=== PATIENT | male | born 1975 | race Caucasian/White ===

== ENCOUNTER → 2016-11-18 | Outpatient (CLI) | payer BC ==
[~2016-11-18] MED LIST: ANT25 PO; ASPI81TA28 PO; HYDR25TA5 PO; OMEP40CA41 PO; ZLF/50 PO
--- NOTE | 2016-11-18 17:29 | EEG Procedure Note ---
EEG Procedure Note Date of Service Nov 18, 2016. Start / End Times Start Time: 9:02 AM End Time: 9:22 AM Referring Physician Randee Solis History This is a 40-year-old male with muscle twitching. EEG for further evaluation of possible seizure etiology. Home Medication List Scheduled Aspirin (Aspirin Ec), 81 MG PO DAILY Hydrochlorothiazide (Hydrochlorothiazide), 25 MG PO DAILY Meclizine HCl (Meclizine HCl), 25 MG PO TID Omeprazole (Prilosec), 40 MG PO DAILY Sertraline HCl (Sertraline HCl), 100 MG PO DAILY Description This is a 21 electrode EEG with a single channel dedicated to limited EKG. The electrodes were placed in accordance with the International 10-20 system. At the start of the recording the patient was in an awake state. Background was well organized and composed of symmetric mixed alpha and beta frequencies. There was a symmetric well-formed moderate amplitude 11-12 Hz posterior dominant rhythm that was reactive to eye opening and closure. Hyperventilation with good effort produced no abnormalities. Intermittent photic stimulation at various frequencies produced no abnormalities. Drowsiness was indicated by loss of muscle artifact and slowing of the background rhythm. Interpretation This is a normal awake and drowsy routine EEG. There was no electrographic seizures or epileptiform discharges. Clinical Correlation A normal EEG does not rule out epilepsy if there is a strong clinical suspicion.
== END | disposition home or self-care (01) ==
LOC: C.NEUR 08:48
PROVIDERS: ATTEND Psychiatry & Neurology Neurology
DX: R25.3 Fasciculation (principal)

== ENCOUNTER → 2018-03-09 | Outpatient (CLI) | payer OTHER ==
--- NOTE | 2018-03-09 17:30 | DIAGNOSTIC IMAGING REPORT ---
L FOOT MIN 3 VIEWS ROUTINE CLINICAL HISTORY: Lateral left foot pain. COMPARISON: None FINDINGS: Tarsometatarsal joints are intact. No acute fracture within the left foot is identified. There is minimal plantar calcaneal spurring. No osseous lesion is noted. No evidence for a stress fracture. There is minimal osteophytosis of the left first metatarsophalangeal joint. IMPRESSION: 1. No acute fracture or dislocation within the left foot. 2. Minimal osteophytosis of the left first metatarsophalangeal joint. Electronically signed by: Lan Brooks M.D. 03/09/2018 5:29 PM Dictated Date/Time: 03/09/2018 5:28 PM
== END | disposition home or self-care (01) ==
LOC: C.RAD1850 16:49
PROVIDERS: ATTEND Family Medicine
DX: M79.672 Pain in left foot (principal)

== ENCOUNTER 2024-12-05 15:39 | Inpatient (IN) ==
--- NOTE | 2024-12-05 16:03 | Emergency Department Note ---
History of Present Illness General Chief complaint: Swelling/Edema to Extremity Stated complaint: SWOLLEN RT KNEE Time Seen by Provider: 12/05/24 15:46 History of Present Illness Maximum Pain Intensity: 3 This is a 49-year-old male that presents to the emergency department via private vehicle with complaints of "right leg swelling". The patient notes that over the past 3 weeks he has had swelling to the right lower extremity. No trauma. No injury. He denies any trauma, injury, fevers or chills. No nausea or vomiting. No chest pain. Patient does note shortness of breath with exertion as of recent. He denies any history of blood clots. No recent trips or travel other than did note he traveled to [place] over the past few days but the leg swelling began prior to his trip. Home Medications Medication Instructions Recorded Confirmed Type famotidine 20 mg tablet (Pepcid) 20 mg PO DAILY 02/03/22 12/05/24 History lancets (Accu-Chek Softclix 02/03/22 07/23/24 History Lancets) semaglutide 2 mg/dose (8 mg/3 mL) 2 mg subcut WK 02/03/22 12/05/24 History subcutaneous pen injector (Ozempic) pantoprazole 40 mg tablet,delayed 40 mg PO DAILY 04/01/24 12/05/24 History release escitalopram oxalate 20 mg tablet 20 mg PO DAILY 12/05/24 12/05/24 History levocetirizine 5 mg tablet 5 mg PO DAILY PRN allergies 12/05/24 12/05/24 History losartan 100 mg tablet 100 mg PO DAILY 12/05/24 12/05/24 History Allergies Allergy/AdvReac Type Severity Reaction Status Date / Time [facility] Allergy Intermediate Unknown Verified 12/05/24 21:31 Iodinated Contrast Media AdvReac Unknown UNKNOWN Verified 12/06/24 01:44 Past Med/Surg History Problem List (Updated 12/06/24 @ 01:54 by Chavo Faust PA-C) T2DM (type 2 diabetes mellitus) Bilateral pulmonary embolism (Acute) Right leg DVT (Acute) Speech disturbance Lactose intolerance Food sensitivity with gastrointestinal symptoms Seasonal rhinitis Bilateral primary osteoarthritis of knee Nocturnal hypoxemia Weight disorder ENID (obstructive sleep apnea) Hyperlipidemia Hypertension Gastroesophageal reflux Dysphagia Diabetes mellitus B12 deficiency Anxiety Foot pain, right Infected insect bite of leg (Acute) Medical History Myoclonus Memory loss Dizziness Ataxia Hiatal hernia Surgical History H/O shoulder surgery H/O wisdom tooth extraction Family History Grandmother (Maternal) Cancer Grandfather (Paternal) Cancer Father Hypertension Diabetes Mother Hypertension Grandfather (Maternal) Hypertension Social History Smoking Status: Never smoker Hx Alcohol Use: Yes Alcohol type: hard liquor Hx Substance Use: No Preferred Language: Tristanian Clinical Support Nurse Required: No Beliefs That Will Affect Care: None Current Living Situation: Spouse Feels Safe at Home: Yes Safety Concerns: Feels Safe At This Time Assistive Devices: BiPap and Glasses Review of Systems A total of 10 systems reviewed and were otherwise negative Physical Exam Vital Signs Vital Signs - 24 hr 12/05/24 15:40 12/05/24 16:04 12/05/24 17:12 Temperature 36.7 C Temperature Source Temporal Artery Scan Pulse Rate 76 64 Pulse Rate [Apical] Respiratory Rate 18 Respiratory Effort / Characteristics Non-Labored Spontaneous Respiratory Depth Normal Respiratory Pattern Blood Pressure 123/77 Blood Pressure [Right Arm] Blood Pressure Mean 92 Blood Pressure Mean [Right Arm] Blood Pressure Position Sitting Blood Pressure Position [Right Arm] Pulse Oximetry 96 95 Oxygen Delivery Method Room Air Room Air Sepsis Recent Fever Within 48 Hours No Sepsis New/Unexplained Change in Mental Status No Sepsis Action Taken by Nursing No Action Required 12/05/24 17:32 12/05/24 19:00 Temperature Temperature Source Pulse Rate Pulse Rate [Apical] 62 57 L Respiratory Rate 12 14 Respiratory Effort / Characteristics Non-Labored Spontaneous Respiratory Depth Normal Respiratory Pattern Regular Blood Pressure Blood Pressure [Right Arm] 142/87 H Blood Pressure Mean Blood Pressure Mean [Right Arm] 105 Blood Pressure Position Blood Pressure Position [Right Arm] Semi-fowlers Pulse Oximetry 99 99 Oxygen Delivery Method Room Air Room Air Sepsis Recent Fever Within 48 Hours Sepsis New/Unexplained Change in Mental Status Sepsis Action Taken by Nursing VITAL SIGNS - Vital signs and nursing notes were reviewed. Stable and afebrile. GENERAL -49-year-old male appearing his stated age who is in no acute distress. Communicates well with provider and answers questions appropriately. SKIN - Without rashes. No meningeal or petechial rash. HEAD - NC/AT. EYES - PERRL with EOMI bilaterally. Sclera anicteric. EARS - No deformities of external structures noted on gross examination bilaterally. NOSE - Midline and without cyanosis. No epistaxis or purulent drainage noted. MOUTH/OROPHARYNX - Without perioral cyanosis. NECK - No nuchal rigidity. LUNGS - Chest wall symmetric without accessory muscle use, intercostals retractions, or central cyanosis. Normal vesicular breath sounds CTA B/L. No wheezes, rales, or rhonchi appreciated. CARDIAC - RRR ABDOMEN - Abdominal contour normal without pulsations or visible masses. BS normoactive all four quadrants. No tenderness, palpable masses, hepatosplenomegaly, or ascites noted. EXTREMITIES - No clubbing or peripheral cyanosis. Circumferential right lower extremity noted distal to the right knee. There is no crepitus. Compartments are soft. Dorsalis pedis pulses within normal limits. Lower extremities are appropriately warm and well-perfused. +5/5 strength noted in UE/LE bilaterally. NEUROLOGIC - Cranial nerves II through XII grossly intact. PSYCH -alert, oriented and pleasant on exam Course Administered Medications Escitalopram Oxalate (Escitalopram Oxalate 20 Mg Tab) 20 mg PO HS WANDA Stop: 01/04/25 21:26 Last Admin: 12/05/24 22:07 Dose: 20 mg Documented By: AGUILAR Famotidine (Famotidine 20 Mg Tab) 20 mg PO HS WANDA Stop: 01/04/25 21:26 Last Admin: 12/05/24 22:07 Dose: 20 mg Documented By: AGUILAR Heparin Sodium/Dextrose (Heparin 19439 Unit/500 Ml D5w) 25,000 units in 500 mls @ 33 mls/hr IV .[id number] WANDA; Protocol Stop: 01/04/25 19:29 Last Titration: 12/05/24 21:14 Dose: 1,650 units/hr, 33 mls/hr Documented By: GELA Co-signed By: AGUILAR Admin: 12/05/24 19:31 Dose: 1,650 units/hr, 33 mls/hr Documented By: GELA Co-signed By: NAW Losartan Potassium (Losartan Potassium 50 Mg Tab) 100 mg PO WANDA Stop: 01/04/25 21:26 Last Admin: 12/05/24 22:07 Dose: 100 mg Documented By: LMP Pantoprazole Sodium (Pantoprazole 40 Mg Tab) 40 mg PO HS WANDA Stop: 01/04/25 21:26 Last Admin: 12/05/24 22:07 Dose: 40 mg Documented By: LMP Discontinued Medications Heparin Sodium (Porcine) (Heparin Sod (Porcine) 1000 Unit/Ml) 1 units IV NOW ONE Stop: 12/05/24 19:28 Last Admin: 12/05/24 19:48 Dose: 7,000 units Documented By: GELA Co-signed By: AMIRA Heparin Sodium/Dextrose (Heparin Iv Adult Wt-Based Standard W/ Initial Bolus Protocol) 1 each IV NOW STA; Protocol Stop: 12/05/24 19:13 Last Admin: 12/05/24 19:20 Dose: 1 each Documented By: GELA Ioversol (Optiray 320 125ml) 119 ml IV ONCE ONE Stop: 12/05/24 18:29 Last Admin: 12/05/24 18:28 Dose: 119 ml Documented By: RYAN Critical Care Time I have personally spent about 61 minutes of critical care time in the direct management of this patient. This includes bedside care, interpretation of diagnostic studies, and testing, discussion with consultants, patient, and family members, and other required patient management activities. This 61 minutes is in excess of all separately billable procedures. Medical Decision Making Laboratory Data 12/05/24 16:19 12/05/24 16:19 Lab Results 12/05/24 Range/Units 16:19 WBC 8.84 (4.8-10.8) K/ul RBC 4.53 L (4.70-6.10) M/uL Hgb 13.7 L (14.0-18.0) g/dl Hct 41.1 L (42.0-52.0) % MCV 90.7 (80.0-100.0) fL MCH 30.2 (25.0-34.0) pg MCHC 33.3 (32.0-36.0) g/dL RDW Std Deviation 42.3 (36.4-46.3) fL RDW Coeff of Jada 13.1 (11.5-14.5) % Plt Count 210 (130-400) K/uL MPV 10.8 (9.4-12.4) fL Immature Gran % (Auto) 0.3 % Neut % (Auto) 71.9 % Lymph % (Auto) 20.7 % [place] % (Auto) 4.8 % Eos % (Auto) 2.0 % Baso % (Auto) 0.3 % Neut # (Auto) 6.35 (1.40-6.50) K/uL Lymph # (Auto) 1.83 (1.20-3.40) K/uL [place] # (Auto) 0.42 (0.11-0.59) K/uL Eos # (Auto) 0.18 (0.00-0.50) K/uL Baso # (Auto) 0.03 (0.00-0.20) K/uL Immature Gran # (Auto) 0.03 (0.01-0.20) K/uL PT 10.9 (9.0-12.0) Seconds INR 1.0 (0.9-1.1) APTT 26 (21-31) Seconds PTT Ratio 1.0 Sodium 140 (136-145) mmol/L Potassium 4.0 (3.5-5.1) mmol/L Chloride 107 (98-107) mmol/L Carbon Dioxide 28 (21-32) mmol/L Anion Gap 5 (3-11) BUN 15 (6-23) mg/dl Creatinine 1.27 (0.6-1.4) mg/dl Est Cr Clr Drug Dosing 90.6 ml/min eGFR 68.40 BUN/Creatinine Ratio 11.8 (10-20) Glucose 119 H (70-99(Fasting)) mg/dl Calcium 9.3 (8.6-10.3) mg/dl Total Bilirubin 1.1 H (0.2-1.0) mg/dl AST 20 (13-39) U/L ALT 24 (7-52) U/L Alkaline Phosphatase 64 (34-104) U/L Troponin I High Sens < 2.3 (0-20) pg/ml Total Protein 7.4 (6.0-8.3) gm/dl Albumin 4.2 (3.4-5.0) gm/dl Globulin 3.2 (2.5-4.0) gm/dl Albumin/Globulin Ratio 1.3 (0.9-2) TSH 1.633 (0.300-4.500) uIu/ml Imaging Data Radiologist's Impression: Venous Doppler Study 12/05/24 16:02 EXAM: US venous doppler LE RT CLINICAL HISTORY: Atraumatic RLE edema. TECHNIQUE: Ultrasound examination of the right lower extremity veins was performed in real time and duplex. One or more of the following were performed- spectral analysis, resistive index, waveform analysis, and pulsed Doppler. COMPARISON: None. FINDINGS: The right distal SFV is seen as partially compressible with partial flow, indicating acute nonocclusive DVT. The Pop v, one of the PTVs, and one of the peroneal and ATV veins, and superficial popliteal fossa veins are seen distended with echogenic thrombus, non-compressible with no flow inside, indicating acute DVT. Normal phasic, non-pulsatile, and spontaneous flow is noted in the right common femoral, proximal, and mid superficial femoral veins. Demonstrating normal compressibility with no evidence of acute deep vein thrombosis (DVT) Compression and Augmentation: The right common femoral, proximal, and mid superficial femoral veins compress fully with applied transducer pressure. Additional findings: Mild calf edema. IMPRESSION: 1. Acute occluside DVT in the right popliteal vein, one of the posterior tibial vein, and one of the peroneal and anterior tibial veins. 2. Right distal SFV acute non-occlusive DVT. 3. Mild calf edema. Disclaimer: DVT could be missed early in the disease when clot burden is minimal. For patients with moderate and high pretest probability of DVT and negative ultrasound, the [employer] clinical guidelines recommend testing with a D-dimer assay or repeat ultrasound in 5-7 days. If symptoms worsen, the Society of radiologists in ultrasound recommends repeating ultrasound even earlier. Electronically signed by Tutu Hernandez 12-05-2024 6:16 PM Chest X-Ray 12/05/24 16:07 EXAM: XR chest 1V portable CLINICAL HISTORY: exertional dyspnea TECHNIQUE: An X-ray image of the chest is obtained in AP projection. COMPARISON: 03/31/2016 FINDINGS: Pulmonary Parenchyma: Bilateral prominent hilar vascularity. No evidence of consolidation, collapse, or focal opacities. No pulmonary nodules are identified. No evidence of pleural effusion or pleural thickening. Heart and Mediastinum: Cardiomegaly. No mediastinal widening or masses. No hilar or mediastinal lymphadenopathy. Bony Thorax: Bony thorax appears intact without fractures or deformities. Soft Tissues: Soft tissues overlying the chest wall are unremarkable. A radiopaque line is seen at the right lung apex extending to the right axilla IMPRESSION: 1. Cardiomegaly. Bilateral prominent hilar vascularity.Possible congestive changes. Unchanged. 2. A radiopaque line is seen at the right lung apex extending to the right axilla. Suspected artifacual. Correlate clinically. Electronically signed by Tutu Hernandez 12-05-2024 6:53 PM Chest CTA 12/05/24 18:10 EXAMINATION: CT angio chest PE protocol CLINICAL HISTORY: Dyspnea, right leg edema PRIORS: Chest x-ray December 05, 2024 TECHNIQUE: Contiguous axial images were obtained through the chest with the use of intravenous contrast. Sagittal and coronal reformations are supplied. FINDINGS: Pulmonary arteries are well opacified with normal caliber. Pulmonary embolism present in the subsegmental left lower lobe pulmonary arteries, image 63, series 2. There may be a small amount of embolism distal to this in the peripheral branches. Small amount of pulmonary embolism also present in the segmental branch of the right middle lobe. Pulmonary embolism present in the right segmental branch of the lower lobe. Mild to moderate clot burden is identified. Mild flattening of the interventricular septum noted. No contrast reflux into the inferior vena cava or hepatic veins. Allowing for motion, the right ventricle may be mildly enlarged. No dominant pulmonary mass or airspace consolidation. No pleural or pericardial effusion. Heart size upper limits of normal. Small to moderate hiatal hernia. In bone windows, no acute osseous abnormality. IMPRESSION: Bilateral pulmonary embolism involving segmental and subsegmental branches with mild to moderate clot burden and CT features suggesting heart strain. A report was sent to the requesting service at 6:51 PM EST on 12/05/2024. Electronically signed by Lashell Padilla 12-05-2024 6:52 PM [facility] Narrative Patient was seen and evaluated as above in room D04B. Review was performed of triage nursing notes and vital signs. After obtaining a thorough history and physical examination the above work up was performed. Patient presents to us today for evaluation of unilateral leg swelling, right side. No trauma. No injury. He also has some exertional dyspnea. He is clinically well-appearing and nontoxic. Options of care were discussed with the patient. IV access with established. Labs were drawn. There is no leukocytosis. There is minor anemia noted with hemoglobin of 13.7. Coags normal. No emergent metabolic disturbance. Mild hyperglycemia 119. T. bili 1.1. Troponin negative. BNP normal. TSH was euthyroid state. Right lower extremity Doppler study was obtained. DVT noted. 1815 HRS: The patient does have an occlusive DVT noted in the right lower extremity. He does report exertional dyspnea. I do believe a CT of the chest at this time is indicated. There is a listed allergy to added to contrast media but unknown reaction. I discussed this with the patient. He believes this is incorrect, and is likely MRI contrast. at bedside agrees and believes it was an MRI from 2002. I did call CT and. She has had a contrasted CT scan here about 9 years ago. No report of reaction or premedication at that time. Patient denies any anaphylaxis. They did note that to the MRI contrast the patient did have some confusion temporarily but no airway issue. No intubation. I thoroughly reviewed benefit versus risk of CT imaging and contrast with patient and . This time we are in agreement to proceed with CT scan. It is felt that the benefit outweighed risk. I did accompany the patient to the CT suite, he had no reaction at all to the CT contrast. No altered mental status. CT scan of the chest as above. I did receive a call from the radiology company regarding the emergent finding. There was note of bilateral pulmonary embolism involving segmental and subsegmental branches with mild to moderate clot burden and CT features suggesting heart strain. At this time noting the patient's occlusive DVT with mild to moderate clot burden and CT features suggesting heart strain, I did recommend IV heparin. I reviewed benefit versus risk of this medication with the patient and at bedside. At this time through shared medical decision making decision was made to proceed. Patient denies any recent head trauma or injury. No history of GI bleeding. No rectal bleeding. No black tarry stools. He denies any current anticoagulant use. IV heparin ordered, bolus and drip. I do believe that further evaluation and management in the inpatient setting is warranted. I did confirm this order and dosing with the pharmacist. Case discussed with the hospitalist service. Please refer to further documentation regarding his stay. EKG was performed. Per my interpretation this reveals sinus bradycardia at a rate of 55 bpm. QTc 411. QRS 100. No ST elevation on this rhythm tracing. While in the department, I personally reevaluated the patient several times and each time the patient was found to be resting comfortably. The patient was educated upon management, educated upon todays findings/results, educated upon importance of follow up from today's visit, educated upon symptoms in which to return, had questions answered prior to discharge, verbalized understanding, and was discharged home in good condition. GCS: 15 In the evaluation and treatment of this patient, the following differential diagnoses were considered: DVT, sprain, strain, rhabdomyolysis, MN, PE, among others. Impression & Plan Bilateral pulmonary embolism, Right leg DVT Discharge Plan Visit Data Chief Complaint: Swelling/Edema to Extremity Stated Complaint: SWOLLEN RT KNEE ED Provider: Fernanda Smith ED Midlevel Provider: Chavo Faust Discharge Problem: Bilateral pulmonary embolism, Right leg DVT Patient Disposition: Admitted As Inpatient Condition: Good Discharge Instructions Interventions: ED Discharge Assessment Last Done: 12/05/24 21:01
[2024-12-05 16:30] LABS: Basophils # (auto) 0.03 K/uL (0.00-0.20); Basophils % (auto) 0.3 %; Eosinophils # (auto) 0.18 K/uL (0.00-0.50); Hematocrit (blood only) 41.1 % (42.0-52.0); Hemoglobin 13.7 g/dl (14.0-18.0); Immature Granulocytes # (auto) 0.03 K/uL (0.01-0.20); Immature Granulocytes % (auto) 0.3 %; Lymphocytes # (auto) 1.83 K/uL (1.20-3.40); Lymphocytes % (auto) 20.7 %; Mean Corpuscular Hemoglobin 30.2 pg (25.0-34.0); Mean Corpuscular Hgb Conc 33.3 g/dL (32.0-36.0); Mean Corpuscular Volume 90.7 fL (80.0-100.0); Mean Platelet Volume 10.8 fL (9.4-12.4); Monocytes # (auto) 0.42 K/uL (0.11-0.59); Monocytes % (auto) 4.8 %; Neutrophils # (auto) 6.35 K/uL (1.40-6.50); Neutrophils % (auto) 71.9 %; Platelet Count 210 K/uL (130-400); RDW Coefficient of Variation 13.1 % (11.5-14.5); RDW Standard Deviation 42.3 fL (36.4-46.3); Red Blood Count 4.53 M/uL (4.70-6.10); White Blood Count 8.84 K/ul (4.8-10.8)
[2024-12-05 16:51] LABS: Alanine Aminotransferase 24 U/L (7-52); Albumin Globulin Ratio 1.3 (0.9-2); Albumin Level 4.2 gm/dl (3.4-5.0); Alkaline Phosphatase 64 U/L (34-104); Anion Gap 5 (3-11); Aspartate Aminotransferase 20 U/L (13-39); BUN Creatinine Ratio 11.8 (10-20); Bilirubin,Total 1.1 mg/dl (0.2-1.0); Blood Urea Nitrogen 15 mg/dl (6-23); Calcium 9.3 mg/dl (8.6-10.3); Carbon Dioxide 28 mmol/L (21-32); Chloride 107 mmol/L (98-107); Creatinine Clr Calc Pharmacy 90.6 ml/min; Globulin 3.2 gm/dl (2.5-4.0); Glucose 119 mg/dl (70-99(Fasting)); Sodium 140 mmol/L (136-145); Total Protein 7.4 gm/dl (6.0-8.3)
[2024-12-05 16:55] LABS: Troponin I High Sensitivity < 2.3 pg/ml (0-20)
[2024-12-05 17:40] LABS: Partial Thromboplastin Time 26 Seconds (21-31); Prothrombin Time 10.9 Seconds (9.0-12.0)
--- NOTE | 2024-12-05 18:17 | Ultrasound Report ---
EXAM: US venous doppler LE RT CLINICAL HISTORY: Atraumatic RLE edema. TECHNIQUE: Ultrasound examination of the right lower extremity veins was performed in real time and duplex. One or more of the following were performed- spectral analysis, resistive index, waveform analysis, and pulsed Doppler. COMPARISON: None. FINDINGS: The right distal SFV is seen as partially compressible with partial flow, indicating acute nonocclusive DVT. The Pop v, one of the PTVs, and one of the peroneal and ATV veins, and superficial popliteal fossa veins are seen distended with echogenic thrombus, non-compressible with no flow inside, indicating acute DVT. Normal phasic, non-pulsatile, and spontaneous flow is noted in the right common femoral, proximal, and mid superficial femoral veins. Demonstrating normal compressibility with no evidence of acute deep vein thrombosis (DVT) Compression and Augmentation: The right common femoral, proximal, and mid superficial femoral veins compress fully with applied transducer pressure. Additional findings: Mild calf edema. IMPRESSION: 1. Acute occluside DVT in the right popliteal vein, one of the posterior tibial vein, and one of the peroneal and anterior tibial veins. 2. Right distal SFV acute non-occlusive DVT. 3. Mild calf edema. Disclaimer: DVT could be missed early in the disease when clot burden is minimal. For patients with moderate and high pretest probability of DVT and negative ultrasound, the [employer] clinical guidelines recommend testing with a D-dimer assay or repeat ultrasound in 5-7 days. If symptoms worsen, the Society of radiologists in ultrasound recommends repeating ultrasound even earlier. Electronically signed by Tutu Hernandez 12-05-2024 6:16 PM
[2024-12-05] MEDS: OPTIRAY 320 125ml IV ONE (18:28)
--- NOTE | 2024-12-05 18:52 | CT Scan Report ---
EXAMINATION: CT angio chest PE protocol CLINICAL HISTORY: Dyspnea, right leg edema PRIORS: Chest x-ray December 05, 2024 TECHNIQUE: Contiguous axial images were obtained through the chest with the use of intravenous contrast. Sagittal and coronal reformations are supplied. FINDINGS: Pulmonary arteries are well opacified with normal caliber. Pulmonary embolism present in the subsegmental left lower lobe pulmonary arteries, image 63, series 2. There may be a small amount of embolism distal to this in the peripheral branches. Small amount of pulmonary embolism also present in the segmental branch of the right middle lobe. Pulmonary embolism present in the right segmental branch of the lower lobe. Mild to moderate clot burden is identified. Mild flattening of the interventricular septum noted. No contrast reflux into the inferior vena cava or hepatic veins. Allowing for motion, the right ventricle may be mildly enlarged. No dominant pulmonary mass or airspace consolidation. No pleural or pericardial effusion. Heart size upper limits of normal. Small to moderate hiatal hernia. In bone windows, no acute osseous abnormality. IMPRESSION: Bilateral pulmonary embolism involving segmental and subsegmental branches with mild to moderate clot burden and CT features suggesting heart strain. A report was sent to the requesting service at 6:51 PM EST on 12/05/2024. Electronically signed by Lashell Padilla 12-05-2024 6:52 PM
--- NOTE | 2024-12-05 18:54 | XRay Report ---
EXAM: XR chest 1V portable CLINICAL HISTORY: exertional dyspnea TECHNIQUE: An X-ray image of the chest is obtained in AP projection. COMPARISON: 03/31/2016 FINDINGS: Pulmonary Parenchyma: Bilateral prominent hilar vascularity. No evidence of consolidation, collapse, or focal opacities. No pulmonary nodules are identified. No evidence of pleural effusion or pleural thickening. Heart and Mediastinum: Cardiomegaly. No mediastinal widening or masses. No hilar or mediastinal lymphadenopathy. Bony Thorax: Bony thorax appears intact without fractures or deformities. Soft Tissues: Soft tissues overlying the chest wall are unremarkable. A radiopaque line is seen at the right lung apex extending to the right axilla IMPRESSION: 1. Cardiomegaly. Bilateral prominent hilar vascularity.Possible congestive changes. Unchanged. 2. A radiopaque line is seen at the right lung apex extending to the right axilla. Suspected artifacual. Correlate clinically. Electronically signed by Tutu Hernandez 12-05-2024 6:53 PM
[2024-12-05] MEDS: Heparin IV Adult Wt-Based Standard w/ INITIAL Bolus Protocol IV STA (19:20)
--- NOTE | 2024-12-05 19:29 | History & Physical Report ---
Date of Service December 05, 2024 Assessment & Plan (1) Right leg DVT: (2) Bilateral pulmonary embolism: (3) T2DM (type 2 diabetes mellitus): Plan Patient is a 49-year-old male with past medical history of type II DM on Ozempic, hypertension, hyperlipidemia, ENID on BiPAP, conversion disorder. Patient presented with 3 weeks of right lower extremity swelling and pain and associated dyspnea on exertion. patient was found to have right lower extremity DVT and bilateral PE with right heart strain seen on CTA. He is being admitted on IV heparin drip and echocardiogram ordered. #RLE DVT/bilateral PE/right heart strain - Doppler study showed occlusive DVT in right popliteal vein, 1 of posterior tibial vein, and 1 of peroneal and anterior tibial veins; right distal SFV acute nonocclusive DVT. CTA showed bilateral pulmonary embolism involving segmental and subsegmental branches with mild to moderate clot burden and features suggesting right heart strain. CXR showed cardiomegaly. Patient's laboratories and vital signs stable at time of admission. Troponin <2.3. - Echocardiogram ordered to further evaluate right heart strain - 2 hour repeat trop pending; Repeat troponin with a.m. labs - BNP pending - Heparin bolus + drip started in ED, continue - Will need transition to oral anticoagulation at discharge - Patient without significant risk factors. Of note literature studies show 266% increase of DVT in patients on Ozempic. Patient has been on Ozempic for approximately 2 years and at the dose of 2 mg for approximately 1 year. Will hold Ozempic at this time and recommend transition to an alternative diabetes r egimen. Has failed treatment with metformin in the past. #T2DM - Controlled on Ozempic at home; holding given above. - defer BSG or SSI given glucose well-controlled; add as needed #conversion disorder/anxiety noted history of abnormal speech and ataxia extensively worked up by [facility] determined to be conversion disorder and improved with SSRI. Follows with neurologist Dr. Anglin. - Continue escitalopram #ENID - stable - BiPAP ordered #HTN - stable - continue losartan #GERD stable - Continue PPI and famotidine Patient noted he occasionally gains 15 lbs of water weight that goes to his abdomen. Etiology unknown. Laboratories stable. - TSH ordered VTE ppx: Heparin drip Dispo: PCU with risk of decompensating with right heart strain Admission and Anticipated Discharge Date Admission Date: 12/05/24 History of Present Illness Chief Complaint: swelling to rle Primary Care Provider: Roquesara Zack Patient is a 49-year-old male with past medical history of type II DM on Ozempic, hypertension, hyperlipidemia, ENID on BiPAP, conversion disorder. Patient presented with 3 weeks of right lower extremity swelling and pain and associated dyspnea on exertion. Patient was found to have right lower extremity DVT and bilateral PE with right heart strain seen on CTA. He is being admitted on IV heparin drip and echocardiogram ordered. Patient seen at bedside with his present. He was sent in by his PCP. He stated that approximately 3 weeks ago he developed right ankle pain which then progressed to his foot and calf. He noticed his foot and calf were swelling at this point. The swelling and pain fluctuates on a day-to-day basis and today is currently improved. Pain and swelling were unrelieved with TEDs and ibuprofen at home. Patient denies any trauma to his leg. He also endorses dyspnea on exertion for the past 3 weeks. Patient denies any secondary changes. He works at a [employer] at [employer] and is frequently up and moving around. He denies any recent travel or sitting for long periods of time. Patient denies any past history of nicotine use, cancer, previous VTE. He is unsure if he has a family history of clots, stated his grandmother had a stroke and his aunt several aneurysms in the early . He personally has never had a known clot. Patient will be due for all of his medications (he takes all HS), uses BiPAP at bedtime, he wishes to be full code. Allergies Allergy/AdvReac Type Severity Reaction Status Date / Time [facility] Allergy Intermediate Unknown Verified 12/05/24 21:31 Iodinated Contrast Media Allergy Unknown UNKNOWN Verified 12/05/24 19:50 Home Medications Medication Instructions Recorded Confirmed Type famotidine 20 mg tablet (Pepcid) 20 mg PO DAILY 02/03/22 12/05/24 History lancets (Accu-Chek Softclix 02/03/22 07/23/24 History Lancets) semaglutide 2 mg/dose (8 mg/3 mL) 2 mg subcut WK 02/03/22 12/05/24 History subcutaneous pen injector (Ozempic) pantoprazole 40 mg tablet,delayed 40 mg PO DAILY 04/01/24 12/05/24 History release escitalopram oxalate 20 mg tablet 20 mg PO DAILY 12/05/24 12/05/24 History levocetirizine 5 mg tablet 5 mg PO DAILY PRN allergies 12/05/24 12/05/24 History losartan 100 mg tablet 100 mg PO DAILY 12/05/24 12/05/24 History Past Med/Surg History Problem List (Updated 12/05/24 @ 20:21 by Janeth Guzman PA-C) T2DM (type 2 diabetes mellitus) Bilateral pulmonary embolism Right leg DVT Speech disturbance Lactose intolerance Food sensitivity with gastrointestinal symptoms Seasonal rhinitis Bilateral primary osteoarthritis of knee Nocturnal hypoxemia Weight disorder ENID (obstructive sleep apnea) Hyperlipidemia Hypertension Gastroesophageal reflux Dysphagia Diabetes mellitus B12 deficiency Anxiety Foot pain, right Infected insect bite of leg (Acute) Medical History Myoclonus Memory loss Dizziness Ataxia Hiatal hernia Surgical History H/O shoulder surgery H/O wisdom tooth extraction Family History Grandmother (Maternal) Cancer Grandfather (Paternal) Cancer Father Hypertension Diabetes Mother Hypertension Grandfather (Maternal) Hypertension Social History Smoking Status: Never smoker Hx Alcohol Use: Yes Alcohol type: hard liquor Hx Substance Use: No Preferred Language: Romansh Automatic Presser Required: No Beliefs That Will Affect Care: None Current Living Situation: Spouse Feels Safe at Home: Yes Safety Concerns: Feels Safe At This Time Assistive Devices: BiPap and Glasses Review of Systems Review of Systems: See HPI Physical Exam Physical Exam: The patient is awake, alert and oriented 3, well developed and well nourished, normocephalic and atraumatic, in no acute distress. Non-toxic appearing. HEENT- EOMI, mucous membranes moist. Hearing grossly intact. Heart-normal S1 and S2. No murmurs, rubs or gallops. Lungs-clear bilaterally, no respiratory distress, no accessory muscle use. Abdomen-normal bowel sounds and soft. No ascites noted. Non-tender. Extremities- no clubbing, cyanosis. right LE with 1+ pitting edema. Rheumatologic-normal range of motion. Psychiatric-normal affect. Results & Data Results & Data Vital Signs (Past 12 Hours) Vital Signs Temp Pulse Pulse Resp BP BP Pulse Ox 12/05/24 19:00 57 L 14 142/87 H 99 12/05/24 17:32 62 12 99 12/05/24 17:12 64 12/05/24 16:04 95 12/05/24 15:40 36.7 C 76 18 123/77 96 O2 Del Method 12/05/24 19:00 Room Air 12/05/24 17:32 Room Air 12/05/24 17:12 12/05/24 16:04 Room Air 12/05/24 15:40 Room Air Laboratory Results Reviewed CBC, CMP, troponin, BNP Diagnostic Findings reviewed chest CTA, CXR, venous Doppler Medications Administered EDheparin bolus plus drip ECG Additional Comments: sinus bradycardia, rate 55 QTc 411 Code Status & VTE Plan Code Status full code VTE Prophylaxis Plan VTE Prophylaxis will be ordered: Yes Supervising Physician Co-Signing Physician Notes Patient seen and examined, chart reviewed, case discussed with MARITZA Guzman and I agree with the assessment plan as documented above. In brief, patient is a 49-year-old male presenting with 3 weeks of progressive right lower extremity edema and heaviness as well as dyspnea on exertion. Found to have right lower extremity DVT and bilateral PEs with evidence of right heart strain noted on CT of the chest. Patient is afebrile and hemodynamically stable. No obvious risk factors for VTEno prior history of VTE, no familial history, no recent trauma or immobility. 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 He is to have endoscopy performed every 3 years for follow-up. On physical exam patient is afebrile, hemodynamically stable, resting comfortably Skinwarm, dry, intact, no rashes or lesions HEENTmoist mucous membranes, neck supple Heart+ S1, S2, regular, no murmur/rub/gallops LungsCTA anteriorly, no rales/rhonchi/wheezes Abdomenpositive bowel sounds, soft, nontender/nondistended Extremitiesedema of right lower extremity with redness, mildly tender to palpation Labs and images reviewed Assessment/plan: Right lower extremity DVT/PEunprovoked Admit to PCU Check 2D echo Continue heparin drip Would encourage patient to keep scheduled follow-up for endoscopy. He does not endorse any concerning symptoms for malignancy at this time Remainder of plan as above PG Care Time/CCT Total # of Minutes Spent Total Time Spent with Patient: Total time spent is greater than 50% in coordination of care (as documented) at patient's floor/unit and/or counseling patient: Coding Level of Care Code 56925 INT INP/OBS CARE 3/75MIN Diagnoses Right leg DVT I82.401 Bilateral pulmonary embolism I26.99 T2DM (type 2 diabetes mellitus) E11.9
[2024-12-05] MEDS: HEPARIN 25000 UNIT/500 ML D5W 25,000 UNITS/500 ML BAG IV SCH (19:31)
[2024-12-05] MEDS: HEPARIN SOD (PORCINE) 1000 UNIT/ML IV ONE (19:48)
[2024-12-05 20:58] LABS: Thyroid Stimulating Hormone 1.633 uIu/ml (0.300-4.500)
[2024-12-05] MEDS ORDERED: ACETAMINOPHEN 325 MG TAB PO PRN (21:27)
[2024-12-05] MEDS ORDERED: ONDANSETRON INJ 2 MG/ML 2 ML VIAL IV PRN (21:27)
[2024-12-05] MEDS ORDERED: DOCUSATE SODIUM 100 MG CAP PO PRN (21:27)
[2024-12-05] MEDS ORDERED: MELATONIN 3 MG TAB PO PRN (21:27)
[2024-12-05] MEDS: PANTOprazole 40 MG TAB PO SCH (22:07)
[2024-12-05] MEDS: ESCITALOPRAM OXALATE 20 MG TAB PO SCH (22:07)
[2024-12-05] MEDS: LOSARTAN POTASSIUM 50 MG TAB PO SCH (22:07)
[2024-12-05] MEDS: FAMOTIDINE 20 MG TAB PO SCH (22:07)
[2024-12-06 02:17] LABS: Basophils # (auto) 0.04 K/uL (0.00-0.20); Basophils % (auto) 0.5 %; Eosinophils # (auto) 0.22 K/uL (0.00-0.50); Eosinophils % (auto) 2.7 %; Hematocrit (blood only) 39.2 % (42.0-52.0); Hemoglobin 13.2 g/dl (14.0-18.0); Immature Granulocytes # (auto) 0.04 K/uL (0.01-0.20); Immature Granulocytes % (auto) 0.5 %; Lymphocytes # (auto) 2.42 K/uL (1.20-3.40); Lymphocytes % (auto) 29.6 %; Mean Corpuscular Hemoglobin 30.1 pg (25.0-34.0); Mean Corpuscular Hgb Conc 33.7 g/dL (32.0-36.0); Mean Corpuscular Volume 89.3 fL (80.0-100.0); Mean Platelet Volume 10.5 fL (9.4-12.4); Monocytes % (auto) 6.1 %; Neutrophils # (auto) 4.95 K/uL (1.40-6.50); Neutrophils % (auto) 60.6 %; Platelet Count 185 K/uL (130-400); RDW Coefficient of Variation 13.1 % (11.5-14.5); RDW Standard Deviation 42.6 fL (36.4-46.3); Red Blood Count 4.39 M/uL (4.70-6.10); White Blood Count 8.17 K/ul (4.8-10.8)
[2024-12-06 02:34] LABS: BUN Creatinine Ratio 11.1 (10-20); Calcium 8.5 mg/dl (8.6-10.3); Creatinine Clr Calc Pharmacy 98.3 ml/min; Potassium 3.3 mmol/L (3.5-5.1)
[2024-12-06 02:41] LABS: ANTI-Xa, UFH(UnfractionatedHep 0.61 IU/ml (0.3-0.7)
[2024-12-06 02:41] LABS: Troponin I High Sensitivity 4.7 pg/ml (0-20)
--- NOTE | 2024-12-06 07:00 | Hospitalist Progress Note ---
Date of Service December 06, 2024 Assessment & Plan Plan Patient is a 49-year-old male with past medical history of type II DM on Ozempic, hypertension, hyperlipidemia, ENID on BiPAP, conversion disorder. Patient presented with 3 weeks of right lower extremity swelling and pain and associated dyspnea on exertion. He is admitted for Right leg DVT and bilateral Pulmonary Embolism with right heart strain seen on CTA. #Pulmonary embolism #DVT -Stop heparin Drip -Start Eliquis 10mg BID -Patient stable to go home. Discharge today. -Eliquis 10mg bid for 7 days and 5mg BID thereafter. -Restart Ozempic. very less probability of ozempic leading to DVT/PE -Follow up with Dr Dixon in a week #T2DM -Continue Ozempic #conversion disorder/anxiety Continue same #ENID - stable - BiPAP ordered #HTN - stable - continue losartan #GERD stable - Continue PPI and famotidine Admission and Anticipated Discharge Date Admission Date: December 05, 2024 Subjective Overnight events: No any Ongoing symptoms: Stable. Denies shortness of breath, fever or palpitations New concerns: No any Review of Systems Review of Systems: As per HPI Physical Exam Constitutional: WD/WN, vitals as above well developed; no acute distress Eyes: PERRL, conjunctivae normal, anicteric sclerae ENMT: external ear and nose normal, oropharynx normal Ears: no hearing impairment Neck: trachea midline, no thyromegaly trachea midline Respiratory: normal respiratory effort, lungs clear to auscultation normal respiratory effort and + respiratory distress; no labored breathing and no retractions Auscultation: lungs clear to auscultation bilaterally Cardiovascular: RRR, no murmur, no edema Rate/Rhythm: regular rate and regular rhythm Chest (Breasts): normal inspection/palpation of breasts Chest: normal inspection of chest Musculoskeletal: Extremities: + lower leg abnormality (left leg swelling +) Results & Data Results & Data Vital Signs (Past 12 Hours) Vital Signs Temp Pulse Pulse Resp BP Pulse Ox O2 Del Method 12/06/24 03:23 36.6 C 65 22 129/82 98 CPAP 12/06/24 03:11 12 12/06/24 00:00 65 12/05/24 23:22 36.6 C 56 L 22 133/86 100 CPAP 12/05/24 22:25 61 12 97 12/05/24 21:30 69 12/05/24 21:28 37.0 C 63 20 143/89 H 98 Room Air 12/05/24 20:51 36.9 C 59 L 20 144/90 H 99 Room Air 12/05/24 19:00 57 L 14 142/87 H 99 Room Air FiO2 12/06/24 03:23 12/06/24 03:11 21 12/06/24 00:00 12/05/24 23:22 12/05/24 22:25 21 12/05/24 21:30 12/05/24 21:28 12/05/24 20:51 12/05/24 19:00
[2024-12-06 08:41] VITALS: RESP 18
--- NOTE | 2024-12-06 09:23 | XCELERA ---
[id number]
--- NOTE | 2024-12-06 10:17 | Electrocardiogram Report ---
Test Reason : Blood Pressure : */* mmHG Vent. Rate : 55 BPM Atrial Rate : 55 BPM P-R Int : 204 ms QRS Dur : 100 ms QT Int : 430 ms P-R-T Axes : 48 1 25 degrees QTcB Int : 411 ms Sinus bradycardia Otherwise normal ECG When compared with ECG of 02-Jun-2016 19:43, Vent. rate has decreased by 38 bpm Confirmed by Aleksey Smith ([id number]) on 12/06/2024 10:16:53 AM Referred By: REFERRED SELF Confirmed By: Aleksey Smith
[2024-12-06] MEDS: APIXABAN 5 MG TABLET PO SCH (10:59)
[2024-12-06 12:10] VITALS: BP 124/82; PULSE 66; TEMP 97.9; O2SAT 97
--- NOTE | 2024-12-06 13:06 | Discharge Summary ---
Discharge Summary Date of Service December 06, 2024 Principal Dx & Hospital Course #1 = Principal Diagnosis (1) Right leg DVT: (2) Bilateral pulmonary embolism: (3) T2DM (type 2 diabetes mellitus): Plan #RLE DVT/bilateral PE/right heart strain - Doppler study showed occlusive DVT in right popliteal vein, 1 of posterior tibial vein, and 1 of peroneal and anterior tibial veins; right distal SFV acute nonocclusive DVT. CTA showed bilateral pulmonary embolism involving segmental and subsegmental branches with mild to moderate clot burden and features suggesting right heart strain. CXR showed cardiomegaly. Patient's laboratories and vital signs stable at time of admission. Troponin <2.3. - Bilateral pulmonary emboli due to right popliteal, posterior tibial, peroneal, and anterior tibial DVT's - echo reassuring - Did not require oxygen, was never hemodynamically unstable, clinically has done quite well. Safe/stable for home. Transitioned to Eliquis, cost quite affordable with coupons ($10 a month) - admitting team raise the question of whether or not his GLP could potentially be culprit; in review of the literature while there is a quoted statistic of a potentially 266% increase of DVT risk with semaglutide, and review of this literature, it is not entirely clear what data the meta-analysis was pulling from, it appears in the root studies VTE risk was not a primary endpoint being focused on, I in my clinical practice have not seen any significant uptick in VTE related to GLP use, the patient himself notes that it has been helping with his A1c quite considerably, and also regardless he would need to be on anticoagulation indefinitely given that GLP is a culprit or not, he does not have any significant/"loud" reversible provoking factors (such as recent surgery or trauma) and therefore his risk factors would be more "soft" risk factors that would necessitate open ended anticoagulation regardless. - eliquis 10mg bid x 7 days, then 5mg bid thereafter for ~3 months or resolution of sx (whichever comes second) - then would be most appropriate to continue indefinite (ie lifelong) VTE proph w ~50% dosing of DOAC - discussed bleed risk, nuisance vs serious bleeds, management thereof, etc - discussed weight management (albeit briefly given that the focus of the visit was, of course, on VTE and management) - safe/stable for home #T2DM - Controlled on Ozempic at home; See above. On admission the question of whether or not his Ozempic was potentially part of the culprit for his VTE was entertainedas above noted, I am skeptical of this. At the same time, given that he would require anticoagulation anyway and it would be exceedingly unlikely to form clots on anticoagulation even if the Ozempic is culprit (generally the only patients that form clots when they are already on anticoagulation are when it is a terrible metastatic malignancy picture which is absolutely not him), since the Ozempic is helping his diabetes, and that will help with his long-term health, we discussed continuing it #conversion disorder/anxiety noted history of abnormal speech and ataxia extensively worked up by [facility] determined to be conversion disorder and improved with SSRI. Follows with neurologist Dr. Anglin. - Continue escitalopram #ENID - stable - BiPAP ordered #HTN - stable - continue losartan #GERD stable - Continue PPI and famotidine safe/stable for home close and ongoing PCP f/u pt and family at the bedside for lengthy discussion on VTE, pathophys, management, etc. Notes For Next Care Provider Medication Changes From Visit eliquis 10mg bid x 7 days, then 5mg bid thereafter Admission HPI Per Admitting Provider Patient is a 49-year-old male with past medical history of type II DM on Ozempic, hypertension, hyperlipidemia, ENID on BiPAP, conversion disorder. Patient presented with 3 weeks of right lower extremity swelling and pain and associated dyspnea on exertion. Patient was found to have right lower extremity DVT and bilateral PE with right heart strain seen on CTA. He is being admitted on IV heparin drip and echocardiogram ordered. Patient seen at bedside with his present. He was sent in by his PCP. He stated that approximately 3 weeks ago he developed right ankle pain which then progressed to his foot and calf. He noticed his foot and calf were swelling at this point. The swelling and pain fluctuates on a day-to-day basis and today is currently improved. Pain and swelling were unrelieved with TEDs and ibuprofen at home. Patient denies any trauma to his leg. He also endorses dyspnea on exertion for the past 3 weeks. Patient denies any secondary changes. He works at a [employer] at [employer] and is frequently up and moving around. He denies any recent travel or sitting for long periods of time. Patient denies any past history of nicotine use, cancer, previous VTE. He is unsure if he has a family history of clots, stated his grandmother had a stroke and his aunt several aneurysms in the early . He personally has never had a known clot. Christina dukes will be due for all of his medications (he takes all HS), uses BiPAP at bedtime, he wishes to be full code. Updated Medication List Medication Instructions Recorded Confirmed Type famotidine 20 mg tablet (Pepcid) 20 mg PO DAILY 02/03/22 12/05/24 History lancets (Accu-Chek Softclix 02/03/22 07/23/24 History Lancets) semaglutide 2 mg/dose (8 mg/3 mL) 2 mg subcut WK 02/03/22 12/05/24 History subcutaneous pen injector (Ozempic) pantoprazole 40 mg tablet,delayed 40 mg PO DAILY 04/01/24 12/05/24 History release escitalopram oxalate 20 mg tablet 20 mg PO DAILY 12/05/24 12/05/24 History levocetirizine 5 mg tablet 5 mg PO DAILY PRN allergies 12/05/24 12/05/24 History losartan 100 mg tablet 100 mg PO DAILY 12/05/24 12/05/24 History apixaban 5 mg (74 tabs) tablets in 5 mg PO BID #74 ea 12/06/24 Rx a dose pack (Eliquis) Hospital Stay Data Consultations 12/05/24 19:13 ED Decision to Admit Stat Diagnostic Imagining Performed 12/05/24 16:02 US venous doppler LE RT Stat 12/05/24 18:10 CT angio chest PE protocol Stat Total Time Total Time Spent Total Time Spent (In Minutes): >30
--- NOTE | 2024-12-06 13:06 | Billing Data ---
Date of Service December 06, 2024 Coding Level of Care Code 51940 INP/OBS DISCH >30 MIN
--- NOTE | 2024-12-06 15:44 | Discharge Summary ---
Date of Service December 06, 2024 Admission HPI Per Admitting Provider Patient is a 49-year-old male with past medical history of type II DM on Ozempic, hypertension, hyperlipidemia, ENID on BiPAP, conversion disorder. Patient presented with 3 weeks of right lower extremity swelling and pain and associated dyspnea on exertion. Patient was found to have right lower extremity DVT and bilateral PE with right heart strain seen on CTA. He is being admitted on IV heparin drip and echocardiogram ordered. Patient seen at bedside with his present. He was sent in by his PCP. He stated that approximately 3 weeks ago he developed right ankle pain which then progressed to his foot and calf. He noticed his foot and calf were swelling at this point. The swelling and pain fluctuates on a day-to-day basis and today is currently improved. Pain and swelling were unrelieved with TEDs and ibuprofen at home. Patient denies any trauma to his leg. He also endorses dyspnea on exertion for the past 3 weeks. Patient denies any secondary changes. He works at a [employer] at [employer] and is frequently up and moving around. He denies any recent travel or sitting for long periods of time. Patient denies any past history of nicotine use, cancer, previous VTE. He is unsure if he has a family history of clots, stated his grandmother had a stroke and his aunt several aneurysms in the early . He personally has never had a known clot. Patient will be due for all of his medications (he takes all HS), uses BiPAP at bedtime, he wishes to be full code. Admission Exam Per Admitting Provider VITAL SIGNS - Vital signs and nursing notes were reviewed. Stable and afebrile. GENERAL -49-year-old male appearing his stated age who is in no acute distress. Communicates well with provider and answers questions appropriately. SKIN - Without rashes. No meningeal or petechial rash. HEAD - NC/AT. EYES - PERRL with EOMI bilaterally. Sclera anicteric. EARS - No deformities of external structures noted on gross examination bilaterally. NOSE - Midline and without cyanosis. No epistaxis or purulent drainage noted. MOUTH/OROPHARYNX - Without perioral cyanosis. NECK - No nuchal rigidity. LUNGS - Chest wall symmetric without accessory muscle use, intercostals retractions, or central cyanosis. Normal vesicular breath sounds CTA B/L. No wheezes, rales, or rhonchi appreciated. CARDIAC - RRR ABDOMEN - Abdominal contour normal without pulsations or visible masses. BS normoactive all four quadrants. No tenderness, palpable masses, hepatosplenomegaly, or ascites noted. EXTREMITIES - No clubbing or peripheral cyanosis. Circumferential right lower extremity noted distal to the right knee. There is no crepitus. Compartments are soft. Dorsalis pedis pulses within normal limits. Lower extremities are appropriately warm and well-perfused. +5/5 strength noted in UE/LE bilaterally. NEUROLOGIC - Cranial nerves II through XII grossly intact. PSYCH -alert, oriented and pleasant on exam Principal Diagnosis PE with DVT Discharge Exam Constitutional WD/WN, vitals as above well developed; no acute distress Eyes PERRL, conjunctivae normal, anicteric sclerae ENMT external ear and nose normal, oropharynx normal Ears: no hearing impairment Neck trachea midline, no thyromegaly trachea midline Respiratory normal respiratory effort, lungs clear to auscultation normal respiratory effort and + respiratory distress; no labored breathing and no retractions Auscultation: lungs clear to auscultation bilaterally Cardiovascular RRR, no murmur, no edema Rate/Rhythm: regular rate and regular rhythm Chest (Breasts) normal inspection/palpation of breasts Chest: normal inspection of chest Musculoskeletal Extremities: + lower leg abnormality (left leg swelling +) Discharge Data Allergies Allergy/AdvReac Type Severity Reaction Status Date / Time [facility] Allergy Intermediate Unknown Verified 12/05/24 21:31 Iodinated Contrast Media AdvReac Unknown UNKNOWN Verified 12/06/24 01:44 Consultations 12/05/24 19:13 ED Decision to Admit Stat Ordered Studies 12/05/24 16:02 US venous doppler LE RT Stat 12/05/24 18:10 CT angio chest PE protocol Stat Hospital Course (1) T2DM (type 2 diabetes mellitus): (2) Bilateral pulmonary embolism: (3) Right leg DVT: (4) ENID (obstructive sleep apnea): (5) Hyperlipidemia: (6) Hypertension: Plan Patient is a 49-year-old male with past medical history of type II DM on Ozempic, hypertension, hyperlipidemia, ENID on BiPAP, conversion disorder. Patient presented with 3 weeks of right lower extremity swelling and pain and associated dyspnea on exertion. He is admitted for Right leg DVT and bilateral Pulmonary Embolism with right heart strain seen on CTA. #Pulmonary embolism #DVT -Stop heparin Drip -Start Eliquis 10mg BID -Patient stable to go home. Discharge today. -Eliquis 10mg bid for 7 days and 5mg BID thereafter. -Restart Ozempic. very less probability of ozempic leading to DVT/PE -Follow up with Dr Dixon in a week #T2DM -Continue Ozempic #conversion disorder/anxiety Continue same #ENID - stable - BiPAP ordered #HTN - stable - continue losartan #GERD stable - Continue PPI and famotidine Total Time Total Time Spent Total Time Spent (In Minutes): See attending attestation Discharge Plan Discharge Items Patient Disposition: Home - Self-Care Reason For Visit: PE, RLE DVT Discharge Diagnosis: PE with DVT Condition on Discharge: Good Activity: Per Instructions section Non-emergency contact: Primary Care Provider Call non-emergency contact if: you have any medication questions, your symptoms worsen, your pain is not controlled and your pain is worsening Follow-up/Referrals: Jameson Dixon [Primary Care Provider] - 12/11/24 11:05 am (Hospital follow up scheduled December 11 at 11:[address] Escalante. Arrival time is 11:05) Diet: Regular Addtl Attending Provider Instructions: You were admitted to the hospital for Pulmonary Embolism with Deep Vein Thrombosis. You were treated with anticoagulants. On our assessment today, you do not have concerning symptoms and stable enough to go back home today A discharge summary will be sent to your primary care physician to ensure continuity of care. Please bring this discharge summary with you to your next office appointment so that your provider can review it at that time. Medications: Your medication list has been reviewed and reconciled upon discharge to ensure accuracy and continuity of care. An updated list of all your medications is included with your hospital discharge paperwork. Please review this list closely and make note of any changes to your medications. We have sent a new medication called Eliquis to your pharmacy. Take Eliquis 10mg BID for 7 days and then 5mg BID thereafter Follow up appointments: - Make a follow up appointment with your PCP within the next week. It is very important that you follow up with them shortly after discharge from the hospital. - Keep all of your follow up appointments as already scheduled. If you cannot make an appointment, notify your provider. CONTACT YOUR PRIMARY CARE PROVIDER if you experience any of the following: Increase in swelling of extremities and shortness of breath Difficulty following your treatment plan - Difficulty taking any of your me dications CALL 911 OR GO TO THE EMERGENCY DEPARTMENT if you experience any of the following: - [related to reason for admission] - Sudden, severe abdominal pain or nausea/ vomiting - Severe chest pain or chest pain that radiates to your jaw or arm - Sudden, severe shortness of breath or difficulty breathing Pending Studies at Discharge: No Stand-Alone Forms: My [facility], Smoking Cessation Medications and DC Order Prescriptions: New Eliquis 5 mg (74 tabs) tablets,dose pack 5 mg PO BID Qty: 74 0RF Rx Instructions: 10mg BID for 7 days and then 5mg BID thereafter Continued famotidine [Pepcid] 20 mg tablet 20 mg PO DAILY Ozempic 2 mg/dose (8 mg/3 mL) pen injector 2 mg subcut WK (DME) lancets [Accu-Chek Softclix Lancets] Misc See Rx Instructions .Route Rx Instructions: As directed pantoprazole 40 mg tablet,delayed release (DR/EC) 40 mg PO DAILY losartan 100 mg tablet 100 mg PO DAILY escitalopram oxalate 20 mg tablet 20 mg PO DAILY levocetirizine 5 mg tablet 5 mg PO DAILY PRN (Reason: allergies ) Discharge Orders: Discharge Order (Routine); Ordered 12/06/24 Ordered By: Brock Tineo Admission Data Admit Date/Time: 12/05/24 19:44 Attending Provider: Felice Cooper Admit Provider: Alba Murray Primary Care Provider: Jameson Dixon Other Providers: Alba Murray Other Interventions: Discharge Summary Assessment (RN) Last Done: 12/06/24 15:02 Resident Activity Tracking Resident Involvement: Resident Care Provided Care Provided: Adult Hospital Medicine
== END 2024-12-06 16:15 | disposition home or self-care (01) | DRG 299 ==
LOC: ED 15:39 → 4W 19:44 → SUATTDRO 19:44 → 4W 21:01
DX: Z79.899 Other long term (current) drug therapy; I82.451 Acute embolism and thrombosis of right peroneal vein; Z91.041 Radiographic dye allergy status; F41.9 Anxiety disorder, unspecified; I82.431 Acute embolism and thrombosis of right popliteal vein; E78.5 Hyperlipidemia, unspecified; E11.9 Type 2 diabetes mellitus without complications; I26.99 Other pulmonary embolism without acute cor pulmonale; I10 Essential (primary) hypertension; G47.33 Obstructive sleep apnea (adult) (pediatric); I82.441 Acute embolism and thrombosis of right tibial vein; K21.9 Gastro-esophageal reflux disease without esophagitis; Z79.84 Long term (current) use of oral hypoglycemic drugs